=== PATIENT | male | born 1955 | race Caucasian/White ===

== ENCOUNTER 2017-12-01 10:32 | Emergency (ER) | payer MEDICAID ==
[2017-12-01] MEDS: predniSONE 20 MG TAB PO (14:34)
[2017-12-01] MEDS: ALBUTEROL 0.083% (NEB) 2.5 MG/3 ML AMP HHN (14:37)
== END 2017-12-01 16:21 | disposition home or self-care (01) ==
LOC: FTE 10:32
DX: I10 Essential (primary) hypertension (principal); J06.9 Acute upper respiratory infection, unspecified; J45.909 Unspecified asthma, uncomplicated; F17.210 Nicotine dependence, cigarettes, uncomplicated; R05 Cough
CPT/HCPCS: 71045; 94664; 99284-25